=== PATIENT | female | born 1975 | race Caucasian/White ===

== ENCOUNTER 2016-09-21 08:34 | Emergency (ER) | payer SELFPAY ==
[~2016-09-21] VITALS: Ht 165.1 cm; Wt 59.9 kg
[2016-09-21] MEDS ORDERED: NKM (08:45)
[2016-09-21 08:50] VITALS: BP 136/84
[2016-09-21] MEDS ORDERED: Silver Sulfadiazine Cream 25gm TOPIC ONE ×2 (09:04→09:15)
[2016-09-21] MEDS ORDERED: Acetaminophen 500mg (ES) tab ORAL ONE ×2 (09:04→09:15)
[2016-09-21] MEDS ORDERED: SILVADENE20 GM TP (09:12)
[2016-09-21] MEDS ORDERED: TYLENOL EXTRA500 MG ORAL (09:12)
[2016-09-21] MEDS ORDERED: DIPHENHYDRAMINE25 M1 ORAL (09:16)
[2016-09-21 09:18] VITALS: BP 136/84
--- NOTE | 2016-09-21 15:07 | Emergency Room Report ---
History of Present Illness General Chief Complaint: Pain Source: Patient Present Illness HPI 40-year-old female presents ED complaining of sunburn to her back. States she sustained the sunburn after sun exposure 2 days ago. Pain is a 6/10, burning, nonradiating. Also complaining of itchiness. Denies fevers or chills. Only notes burning to her back. Patient is here on vacation. No other aggravating relieving factors. Denies any other associated symptoms Allergies: Coded Allergies: No Known Allergies (Unverified , 09/21/16) Patient History Past Medical History: none Past Surgical History: none Pertinent Family History: none Social History: Denies: alcohol use, drug use, smoking Last Menstrual Period: 3 weeks ago Now: No Immunizations: UTD Reviewed Nursing Documentation: PMH: Agreed, PSxH: Agreed Nursing Documentation-PMH Past Medical History: No Stated History Review of Systems All Other Systems: negative except mentioned in HPI Physical Exam Vital Signs Date Time Temp Pulse Resp B/P Pulse Ox O2 Delivery O2 Flow Rate FiO2 09/21/16 08:40 97.9 70 16 136/84 98 Room Air Sp02 EP Interpretation: reviewed, normal General Appearance: no apparent distress, alert, GCS 15, non-toxic Head: normocephalic Eyes: bilateral eye PERRL, bilateral eye normal inspection ENT: normal ENT inspection Neck: normal inspection Respiratory: normal inspection Cardiovascular #1: normal inspection Gastrointestinal: normal inspection Rectal: deferred Genitourinary: no CVA tenderness Musculoskeletal: normal inspection Neurologic: alert, oriented x3, responsive, motor strength/tone normal, sensory intact, speech normal Psychiatric: judgement/insight normal, memory normal, mood/affect normal, no suicidal/homicidal ideation Skin: arroyo - 1st degree burn to mid back Lymphatic: normal inspection Medical Decision Making Diagnostic Impression: Primary Impression: Sunburn ER Course Hospital Course 40-year-old F presents to ED with redness to back after sun exposure Differential diagnoses include: Cellulitis, dermatitis, insect bite, abscess, burn Clinical course Patient placed on stretcher. After initial history, physical exam reveals a female in no acute distress. On exam there is a large area of redness to the back. no blistering noted. Consistent with suburn Patient became very upset prior to M.D. evaluation. States she was waiting for a long time. At this point patient had been triaged only a few minutes prior. I explained to the patient that I was evaluating a critical patient just prior to seeing her. Patient expressed she did not care to wait Patient was given Tylenol for pain. The patient declined stronger pain medications. Silvadene cream was applied. Potential given Diagnosis - sunburn stable and discharged to home with prescription for Tylenol, bendryl, silvadene cream. Instructed to followup with PMD. Instructed return to ED if symptoms recur or worsen Last Vital Signs Date Time Temp Pulse Resp B/P Pulse Ox O2 Delivery O2 Flow Rate FiO2 09/21/16 09:18 97.9 70 16 136/84 98 Room Air Status: improved Disposition: HOME, SELF-CARE Condition: Stable Scripts Diphenhydramine Hcl* (DIPHENHYDRAMINE HCL*) 25 Mg Capsule 25 MG ORAL Q6H Y for Itching, #30 CAP 0 Refills Prov: YURIY WARD M.D. 09/21/16 Acetaminophen* (TYLENOL EXTRA STRENGTH*) 500 Mg Tablet 500 MG ORAL Q8H Y for Prn Headache/Temp > 101, #30 TAB 0 Refills Prov: YURIY WARD M.D. 09/21/16 Silver Sulfadiazine (SILVADENE) 20 Gm Cream..g. 20 GM TP BID, #20 GM Prov: YURIY WARD M.D. 09/21/16 Referrals: NOT CHOSEN IPA/,REFERRING (PCP) Patient Instructions: Ronny [id number] YURIY WARD M.D. Sep 21, 2016 15:07
== END 2016-09-21 09:20 | disposition home or self-care (01) ==
LOC: EMR 09:12
DX: L55.9 Sunburn, unspecified (principal)
CPT/HCPCS: 99284